=== PATIENT | male | born 1945 ===

== ENCOUNTER 2016-12-20 06:33 | Day surgery (SDC) | payer MEDICARE, MEDICAID ==
[2016-12-19 15:01] VITALS: BMI 21.1
[2016-12-20] MEDS ORDERED: Iodixanol 320 MG/ML 200 ML BOTTLE IV ONE (06:45)
[2016-12-20] MEDS ORDERED: Iohexol 350mgl/ml 50 ML ONE (06:45)
[2016-12-20] MEDS ORDERED: Phenylephrine 10 mg/ml Inj ONE (06:45)
[2016-12-20] MEDS ORDERED: Nitroglycerin 50mg in D5W 0 MG/0 ML BOTTLE IV ONE (06:45)
[2016-12-20] MEDS ORDERED: Lidocaine 2% Inj (20ml) ONE (06:45)
[2016-12-20] MEDS ORDERED: Iodixanol 320 MG/ML 100 ML BOTTLE IV ONE (06:45)
[2016-12-20 07:59] LABS: BASO # 0.01 K/mm3 (0.0-2.0); BASO % 0.1 % (0.0-3.0); EOS # 0.5 (0.0-0.7); GRAN # 3.42 (1.4-6.5); GRAN % 42.7 % (50.0-68.0); LYMPH # 3.2 (1.2-3.4); LYMPH % 39.4 % (22.0-35.0); MEAN CELL VOLUME 94.1 fL (80.0-105.0); MEAN CORPUSCULAR HEMOGLOBIN 30.8 pg (25.0-35.0); MEAN CORPUSCULAR HGB CONC 32.7 g/dl (31.0-37.0); MEAN PLATELET VOLUME 12.4 fl (7.0-11.0); MONO # 0.9 (0.1-0.6); MONO % 11.8 % (1.0-6.0); PLATELET COUNT 187 10^3/uL (120.0-450.0); RED CELL DISTRIBUTION WIDTH 14.1 % (11.5-14.5)
[2016-12-20] MEDS ORDERED: Sodium Bicarbonate (8.4%) 50 Meq Syringe ONE ×2 (08:06→08:21)
[2016-12-20 08:10] LABS: CALCIUM 9.6 mg/dL (8.4-10.5); INR 1.01 (0.93-1.08); PROTHROMBIN TIME 10.9 Seconds (9.9-11.8)
[2016-12-20] MEDS ORDERED: Midazolam 2 MG/2 ML VIAL ONE ×2 (09:53→10:04)
[2016-12-20] MEDS ORDERED: Sodium Chloride 0.9% 1,000 ML IV SCH (10:45)
--- NOTE | 2016-12-20 12:23 | CARD ---
APPROVED REPORT EKG Measurement Heart [id number] ME 176P51 [id number] <Conclusion> Sinus rhythm with frequent premature ventricular complexes Inferior infarct, age undetermined Abnormal ECG
[2016-12-20 14:40] VITALS: O2SAT 99
[2016-12-20 14:42] VITALS: RESP 18; TEMP 98.2
[2016-12-20 14:49] VITALS: BP 125/84; PULSE 77
--- NOTE | 2016-12-20 23:48 | CARDCATH ---
PROCEDURE DATE: 06/22/2016 HISTORY The patient is a 71-year-old male who presents with chest pain and palpitations. The patient's past medical history is notable for history of PTCA and stent in the past, history of diabetes mellitus, hypertension and hypercholesterolemia who presents with an abnormal stress test. He was found to have a creatinine of 2.3 which is unchanged from his previous creatinine measured 2 years ago. After an extensive discussion with the patient and family through the supervisor heading, the risk of contrast nephropathy was outlined as well as the other risk of the catheterization. Risks, benefits was discussed and all questions answered. The patient and family agreed to cardiac catheterization and understood the risks that were outlined. The patient was pretreated with aggressive IV hydration with normal saline as well as with IV bicarb. PROCEDURE: Left heart catheterization with coronary angiography and left ventriculogram. A total of 25 mL of contrast dye was utilized. FINDINGS: On catheterization revealed a left ventricle that revealed an inferobasal akinetic area. Estimated ejection fraction is 45-50%. His coronary anatomy revealed a right dominant circulation in the RCA was occluded in its mid portion with a 90% stenosis in the proximal portion. Left main artery was unremarkable. The circumflex artery and obtuse marginal branches with a large vessel. There is a patent stent in the proximal portion of the circumflex artery. The LAD and diagonal vessels revealed internal irregularities without significant stenosis. AngioSeal was used to close the femoral artery site. The patient tolerated the procedure well. IN SUMMARY: 1. 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 2. There is a patent stent in the proximal circumflex artery. 3. The left ventricle revealed a inferobasal akinesis representing the chronically occluded RCA with an EF of 45-50%. 4. A total of 25 mL were utilized. 5. Renal insufficiency. Given these findings, the patient tolerated the procedure well. We will continue the IV bicarb until the patient ready for discharge. We will follow up with his creatinine. I have discussed this in detail with the patient and family. Dexter Blue MD
== END 2016-12-20 16:45 | disposition home or self-care (01) ==
LOC: CATH 06:33
PROVIDERS: ATTEND Internal Medicine Cardiovascular Disease
DX: I25.10 Atherosclerotic heart disease of native coronary artery without angina pectoris (principal); I25.82 Chronic total occlusion of coronary artery; N28.9 Disorder of kidney and ureter, unspecified; E11.9 Type 2 diabetes mellitus without complications; I10 Essential (primary) hypertension; E78.00 Pure hypercholesterolemia, unspecified; Z79.4 Long term (current) use of insulin
CPT/HCPCS: 36415; 80048; 80061; 85025; 85610; 85730; 86850; 86900; 93005; 93458; 99152; C1760; C1769; C2629; J1644; J2250; J3010; J7040

== ENCOUNTER 2018-08-08 05:59 | Outpatient (CLI) | payer MEDICARE, MEDICAID | END 2018-08-08 06:00 | disposition home or self-care (01) | LOC: CARDIO 05:59 ==

== ENCOUNTER 2018-08-22 06:12 | Day surgery (SDC) | payer MEDICARE, MEDICAID ==
[2018-08-16 09:02] VITALS: BMI 37.8
[2018-08-22 06:53] LABS: BASO # 0.02 K/mm3 (0.0-2.0); BASO % 0.2 % (0.0-3.0); EOS # 0.5 (0.0-0.7); EOS % 5.4 % (1.5-5.0); HEMOGLOBIN 12.1 g/dL (14.0-18.0); LYMPH # 3.2 (1.2-3.4); LYMPH % 35.8 % (22.0-35.0); MEAN CELL VOLUME 90.2 fl (80.0-105.0); MEAN CORPUSCULAR HEMOGLOBIN 29.6 pg (25.0-35.0); MEAN CORPUSCULAR HGB CONC 32.8 g/dl (31.0-37.0); MEAN PLATELET VOLUME 11.6 fl (7.0-11.0); MONO # 0.9 (0.1-0.6); MONO % 10.1 % (1.0-6.0); RBC 4.09 10^6/uL (3.5-6.1); RED CELL DISTRIBUTION WIDTH 14.7 % (11.5-14.5)
[2018-08-22] MEDS ORDERED: Lidocaine PF 2% (5 ml) Inj (For Cardiac Arrhy) ONE (06:54)
[2018-08-22] MEDS ORDERED: Iodixanol 320 MG/ML 100 ML BOTTLE IV ONE (06:55)
[2018-08-22] MEDS ORDERED: Iohexol 350mgl/ml 50 ML ONE (06:55)
[2018-08-22] MEDS ORDERED: Iodixanol 320 MG/ML 200 ML BOTTLE IV ONE (06:55)
[2018-08-22 07:03] LABS: INR 1.06; PARTIAL THROMBOPLASTIN TIME 32.8 Seconds (26.9-38.3)
[2018-08-22 07:11] LABS: CALCIUM 9.4 mg/dL (8.4-10.5)
[2018-08-22] MEDS ORDERED: Sodium Bicarbonate (8.4%) 50 mEq Vial ONE (07:38)
[2018-08-22] MEDS ORDERED: Midazolam 2 MG/2 ML VIAL ONE (08:16)
[2018-08-22] MEDS ORDERED: Sodium Chloride 0.9% 1,000 ML IV SCH (09:15)
[2018-08-22 09:26] VITALS: TEMP 97.5
--- NOTE | 2018-08-22 10:29 | CARDCATH ---
PROCEDURE DATE: 08/22/2018 PROCEDURES: 1. Left heart catheterization with coronary arteriography and left ventriculogram with aortogram performed. HISTORY: The patient is a 72-year-old male who presents with an abnormal stress test with new changes on his nuclear stress test. The patient's past medical history includes documented coronary artery disease with a stent in the circumflex artery in the past. He suffers from obesity, noncompliance with healthy heart behavior, diabetes mellitus, hypertension, and hypercholesterolemia. He stopped smoking six years ago. Because of this, cardiac catheterization was recommended. The right femoral artery was cannulated with a 6-[place] sheath. There were no complications. I performed moderate sedation which included the presence of an independent trained observer that assisted in monitoring the patient's level of consciousness and physiologic status. After administration of Versed and fentanyl, my intra service time was 30 minutes. Findings on catheterization revealed a left ventricle that revealed an akinetic inferobasal segment. The overall ejection fraction was 50-55%. His coronary anatomy revealed an occluded RCA which is a dominant vessel. This is chronic. The left main artery is unremarkable. The circumflex artery revealed a patent stent in its proximal portion. The LAD revealed a long 50-60% stenoses in the midportion. Aortogram revealed diffuse atherosclerosis in his descending aorta without discrete aneurysm. Angio-Seal was used to close the femoral artery site. The patient tolerated the procedure well. In summary, the procedure revealed two-vessel CAD with chronically occluded RCA, 50-60% long mid LAD stenoses, and a patent stent in the proximal circumflex artery. LV function is preserved with an akinetic inferobasal segment with an ejection fraction of 50-55%. Abdominal aortogram revealed no discrete aneurysm, however, there is diffuse atherosclerosis. Given these findings, no stent was necessary. I have discussed with the patient again about his need to lose weight and undergo a cardiac risk reduction program. Dexter Blue MD
[2018-08-22 14:57] VITALS: BP 120/61; PULSE 55; RESP 16; O2SAT 99
--- NOTE | 2018-08-22 22:48 | CARD ---
APPROVED REPORT Date of service: 08/22/2018 EKG Measurement Heart [id number] IL [id number] <Conclusion> Normal sinus rhythm Probable iInferior infarct, age undetermined CCR Abnormal ECG
== END 2018-08-22 17:25 | disposition home or self-care (01) ==
LOC: CATH 06:12
PROVIDERS: ATTEND Internal Medicine Cardiovascular Disease
DX: I25.10 Atherosclerotic heart disease of native coronary artery without angina pectoris (principal); I25.82 Chronic total occlusion of coronary artery; I10 Essential (primary) hypertension; E11.9 Type 2 diabetes mellitus without complications; E66.9 Obesity, unspecified; E78.00 Pure hypercholesterolemia, unspecified; Z87.891 Personal history of nicotine dependence; Z91.19 Patient's noncompliance with other medical treatment and regimen; Z79.82 Long term (current) use of aspirin; Z79.4 Long term (current) use of insulin; Z68.37 Body mass index [BMI] 37.0-37.9, adult